=== PATIENT | female | born 1970 | race Caucasian/White ===

== ENCOUNTER → 2016-09-29 | Outpatient (CLI) | payer OTHER ==
--- NOTE | ~2016-09-29 | MY29 ---
[facility] A Service of [facility] RADIOLOGY TEXT RESULTS PATIENT: SULEIMAN RIVERA LOCATION: [facility] : 74 UNIT #: [id number] AGE: [address]: SHAGGY COLLADO APRN SEX: F ORDER DR: [id number] [id number] [facility]. [place], [place] [address] [id number] O MR#: [id number] Acc #: [id number] NAME: SULEIMAN RIVERA : 1970 SEX: F STUDY DATE/TIME: 09/29/2016 15:32 UNIT: [facility] ROOM: STUDY DESCRIPTION: [facility] SCREENING W/ CAD BILAT Attending Physician: Galdino Collado M.D. Ordering Physician: Galdino Collado M.D. Primary Care Physician: Parth Stacy M.D. MEDICAL IMAGING REPORT This report is preliminary unless electronic signature is present EXAM Bilateral digital screening mammogram with CAD. DATE 09/29/2016 HISTORY No personal or family history of breast cancer or current complaints. COMPARISON Bilateral screening mammogram 07/03/2015, 06/04/2014, 08/02/2013. FINDINGS CC and MLO views were obtained of each breast utilizing digital technique and reviewed with an FDA-approved CAD device. Scattered fibroglandular densities are present bilaterally. No new or developing nodule, architectural distortion, or clustered microcalcification is identified. IMPRESSION BIRADS 1. Negative screening mammogram. Routine screening mammogram is recommended in 1 year. Patients over the age of 40 are entered into a reminder system with target due date for the next mammogram. A result letter will also be sent to the patient. BIRADS: 1 Negative Dictated by... [facility] A Service [facility] RADIOLOGY TEXT RESULTS PATIENT: SULEIMAN RIVERA LOCATION: [facility] : 74 UNIT #: [id number] AGE: [address]: SHAGGY COLLADO APRN SEX: F ORDER DR: Josie Flor M.D. THIS IS AN ELECTRONICALLY VERIFIED REPORT Josie Flor M.D. at 10/01/2016 1:[address] [facility]/dwight TD: 09/30/2016 10:22 JOB #: [id number] MEDICAL IMAGING REPORT Page 1 of 1 COPY
== END | disposition home or self-care (01) ==
LOC: CWCC 15:07
DX: Z12.31 Encounter for screening mammogram for malignant neoplasm of breast (principal)
CPT/HCPCS: G0202